=== PATIENT | male | born 1975 | race Caucasian/White ===

== ENCOUNTER 2019-03-14 15:02 | Inpatient (IN) | payer OTHER ==
[~2019-03-14] VITALS: Ht 177.8 cm; Wt 121.2 kg
[2019-03-14 15:29] LABS: ABSOLUTE EOSINOPHILS 0.1 thou/uL (0.0-0.7); ABSOLUTE LYMPHOCYTES 2.8 thou/uL (0.8-5.3); ABSOLUTE MONOCYTES 0.8 thou/uL (0.0-1.2); ABSOLUTE NEUTROPHILS 5.1 thou/uL (1.6-8.1); BASOPHILS 0.3 %; EOSINOPHILS 0.6 %; HEMATOCRIT 39.5 % (42.0-52.0); HEMOGLOBIN 13.1 gm/dL (14.0-18.0); LYMPHOCYTES 31.6 %; MCH 27.2 pg (26.0-34.0); MCHC 33.3 g/dL (28.0-37.0); MCV 81.8 fL (80.0-100.0); MONOCYTES 8.7 %; NUCLEATED RBCS 0 /100WBC; PLATELET COUNT* 308 thou/uL (150-400); POLYS 58.8 %; RBC 4.83 mil/uL (4.50-6.00); RDW-CV 13.8 % (10.5-14.5); WBC 8.7 thou/uL (4.0-11.0)
[2019-03-14 15:38] LABS: ANION GAP 13 mmol/L (7-16); BUN 23 mg/dL (7-18); CHLORIDE 105 mmol/L (98-107); CO2 25 mmol/L (21-32); CREATININE 1.2 mg/dL (0.6-1.3); GLUCOSE 85 mg/dL (70-99); POTASSIUM 3.5 mmol/L (3.5-5.1); SODIUM 143 mmol/L (136-145)
[2019-03-14 15:42] LABS: APTT 27.4 Seconds (25.0-31.3); PROTIME 10.2 Seconds (9.20-11.50)
[2019-03-14 15:49] LABS: ALBUMIN 4.1 g/dL (3.4-5.0); ALKALINE PHOSPHATASE 75 U/L (46-116); LIPASE 141 U/L (73-393); SGOT 23 U/L (15-37); SGPT 48 U/L (30-65); TOTAL BILIRUBIN 0.4 mg/dL (<0.1-1.0); TOTAL PROTEIN 8.1 g/dL (6.4-8.2); TROPONIN-I LEVEL <0.06 ng/mL (<0.06)
[2019-03-14 16:52] LABS: URINE BILIRUBIN NEGATIVE (Negative); URINE BLOOD NEGATIVE (Negative); URINE CLARITY SL CLOUDY; URINE COLOR YELLOW; URINE GLUCOSE-RANDOM NEGATIVE (Negative); URINE KETONES TRACE (Negative); URINE LEUKOCYTES-REFLEX NEGATIVE (Negative); URINE NITRITE-REFLEX NEGATIVE (Negative); URINE PROTEIN NEGATIVE (Negative); URINE SPECIFIC GRAVITY 1.015 (1.005-1.030); URINE UROBILINOGEN 0.2 E.U./dl (0.2-1.0)
[2019-03-14 16:59] LABS: AMP/METHAMP Negative (Negative); BARBITURATES Negative (Negative); BENZODIAZEPINES Negative (Negative); COCAINE Negative (Negative); METHADONE Negative (Negative); OPIATES Negative (Negative); PCP Negative (Negative); THC Negative (Negative)
[2019-03-14 19:24] VITALS: BP 128/80
[2019-03-14 19:40] VITALS: BP 173/95
[2019-03-14 20:10] VITALS: BP 131/73; BP 134/79
[2019-03-15] VITALS (7 sets, daily range): BP systolic 102–150; BP diastolic 64–90
--- NOTE | 2019-03-15 03:03 | NUR ---
RECEIVED PT FROM ER AT APPROX 1930 PER CART ACCOMPANIED BY EUGENIA LOVE. PT IS AWAKE AND ORIENTED X4. VSS ON ROOM AIR. PT IS TRACING SR ON THE MANAGER ARCHITECTURE. PT DENIES PAIN OF THE MOMENT. ADMISSION ASSESSMENTS DONE AND CHARTED. PT ORIENTED ON THE USE OF CALL LIGHT AND ON ROOM SET UP. PT ADVISED ON DIET AND ADVISED TO HAVE NOTHING BY MOUTH POST MIDNIGHT FOR STRESS TEST, PT VERBALISED UNDERSTANDING. HOURLY ROUNDING DONE FOR PT SAFETY. CALL LIGHT WITHIN REACH. WILL CONTINUE TO MONITOR PT.
[2019-03-15 05:09] LABS: CALCIUM 8.1 mg/dL (8.5-10.1); MAGNESIUM 2.1 mg/dL (1.8-2.4); POTASSIUM 3.8 mmol/L (3.5-5.1)
--- NOTE | 2019-03-15 07:20 | NUR ---
CHANGE OF SHIFT, BEDSIDE REPORT GIVEN PATIENT SEEN AT BEDSIDE, IN BED ASLEEP ASSUMED PATIENT CARE
--- NOTE | 2019-03-15 09:51 | NUR ---
Pt is A&O. Active and independent. Resides at home with . No DME. No hx of HH or SNF. Possible dc to home today pending cardiology eval. Following.
[2019-03-15 10:28] LABS: CHOLESTEROL 167 mg/dL (<200); HDL CHOLESTEROL 32 mg/dL (>40); LDL CHOLESTEROL 110 mg/dL (<100); TC:HDL 5.2 Ratio (Not establshd); TRIGLYCERIDE 125 mg/dL (<150); VLDL 25 mg/dL (<40)
[2019-03-15 10:29] LABS: SERUM ASSESSMENT Clear
--- NOTE | 2019-03-15 13:27 | 2DMMODE ---
[place] [address] 2 D/M-MODE ECHOCARDIOGRAM Name: HENRIETTA PEDROZA Room: [address] IN [facility]#: [id number] Admission: 03/14/19 Attend Phys: Jarret Arias, Discharge: Date of : 75 Date of Service: 03/15/19 1327 Report #: [id number] THIS REPORT FOR: //name// APPROVED REPORT Study performed: 03/15/2019 11:21:39 EXAM: Comprehensive 2D, Doppler, and color-flow Echocardiogram Patient Location: In-Patient Room #: [facility] BSA: 2.31 HR: 63 bpm BP: 140/82 mmHg Other Information Study Quality: Good Indications Chest Pain 2D Dimensions IVSd: 11.98 (7-11mm) LVOT Diam: 20.81 (18-24mm) LVDd: 48.02 mm PWd: 10.36 (7-11mm) Ascending Ao: 29.43 (22-36mm) LVDs: 29.87 (25-40mm) Aortic Root: 24.74 mm Volumes Left Atrial Volume (Systole) LA ESV Index: 16.00 mL/m2 Aortic Valve AoV Peak Randy.: 1.49 m/s AO Peak Gr.: 8.89 mmHg LVOT Max P.88 mmHg AO Mean Gr.: 4.77 mmHg LVOT Mean P.30 mmHg LVOT Max V: 1.10 m/s AO V2 VTI: 32.01 cm LVOT Mean V: 0.69 m/s CHLOE (VTI): 2.89 cm2 LVOT V1 VTI: 27.20 cm Mitral Valve E/A Ratio: 1.33 MV Decel. Time: 184.40 ms MV E Max Randy.: 0.78 m/s MV PHT: 53.48 [place] [address] 2 D/M-MODE ECHOCARDIOGRAM Name: HENRIETTA PEDROZA Room: [address] IN [facility]#: [id number] Admission: 03/14/19 Attend Phys: Jarret Arias, Discharge: Date of : 75 Date of Service: 03/15/19 1327 Report #: [id number] MVA (PHT): 4.11 cm2 TDI E/Lateral E': 7.09 E/Medial E': 9.75 Medial E' Randy.: 0.08 m/s Lateral E' Randy.: 0.11 m/s Pulmonary Valve PV Peak Randy.: 1.10 m/s PV Peak Gr.: 4.81 mmHg Tricuspid Valve RAP Estimate: 5.00 mmHg TR Peak Gr.: 19.04 mmHg RVSP: 24.04 mmHg PA Pressure: 24.04 mmHg Left Ventricle The left ventricle is normal size. There is normal LV segmental wall motion. There is normal left ventricular wall thickness. Left ventricular systolic function is normal. The left ventricular ejection fraction is within the normal range. LVEF is 55-60%. The left ventricular diastolic function is normal. Right Ventricle The right ventricle is normal size. The right ventricular systolic function is normal. Atria The left atrium size is normal. The right atrium size is normal. Aortic Valve The aortic valve is normal in structure. No aortic regurgitation is present. There is no aortic valvular stenosis. Mitral Valve The mitral valve is normal in structure. Mild mitral regurgitation. No evidence of mitral valve stenosis. Tricuspid Valve The tricuspid valve is normal in structure. Mild tricuspid regurgitation. Pulmonic Valve The pulmonary valve is normal in structure. There is no pulmonic [place] [address] 2 D/M-MODE ECHOCARDIOGRAM Name: HENRIETTA PEDROZA Room: [address]#: [id number] Admission: 03/14/19 Attend Phys: Jarret Arias, Discharge: Date of : 75 Date of Service: 03/15/19 1327 Report #: [id number] Great Vessels The aortic root is normal in size. IVC is normal in size and collapses >50% with inspiration. Pericardium There is no pericardial effusion. <Conclusion> The left ventricle is normal size. There is normal left ventricular wall thickness. Left ventricular systolic function is normal. The left ventricular ejection fraction is within the normal range. LVEF is 55-60%. The left ventricular diastolic function is normal. The right ventricle is normal size. The left atrium size is normal. The aortic valve is normal in structure. The mitral valve is normal in structure. Mild mitral regurgitation. The tricuspid valve is normal in structure. Mild tricuspid regurgitation. IVC is normal in size and collapses >50% with inspiration. There is no pericardial effusion. There is normal LV segmental wall motion. <ELECTRONICALLY SIGNED> By: Akil Reynoso MD, FACC 03/15/19 1327 132 132 Akil Reynoso MD, FACC /INF
--- NOTE | 2019-03-15 17:00 | NUR ---
PATIENT DISCHARGED OK WITH CARDIOLOGY AFTER 1ST PART OF STRESS TEST DIRECTED TO RETURN TOMORROW FOR 2ND PART OF STRESS TEST IV AND HEART MONITOR REMOVED PERSONAL BELONGINGS RETURNED ASSISTED OUT VIA WC IN GOOD CONDITION TO WAITING CAR
--- NOTE | 2019-03-15 17:01 | EKG ---
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1975 Requested By: Joselyn Merritt Order Number: [id number] MD: Michael Jaramillo Measurements Intervals [place] Rate: 105 P: 38 MN: 159 QRS: 47 QRSD: 92 T: 20 QT: 361 QTc: 478 Interpretive Statements Sinus tachycardia Abnormal R-wave progression, late transition Borderline T abnormalities, anterior leads Borderline prolonged QT interval No previous ECG available for comparison Electronically Signed On 03-15-2019 17:01:32 CDT by Michael Jaramillo [email or web address] <ELECTRONICALLY SIGNED> By: Michael Jaramillo MD, [facility] 03/15/19 1701 [id number] [id number] Michael Jaramillo MD, [facility] /EPI
--- NOTE | 2019-03-16 18:15 | CARDNUC ---
[place] [address] CARDIAC NUCLEAR IMAGING REPORT Name: KASIAHENRIETTA AMRITA Room: [address] IN [facility]#: [id number] Admission: 03/14/19 Attend Phys: Jarret Arias, Discharge: 03/15/19 Date of : 75 Date of Service: 03/16/19 1815 Report #: [id number] THIS REPORT FOR: //name// APPROVED REPORT Study performed: 03/16/2019 14:15:41 Indication: Chest pain, Syncope, Dyspnea Patient Location: In-Patient Stress Tech: Priscila Cuevas Stress Nurse: Lorrie Stevens RN Ht: 5 ft 10 in Wt: 260 lbs BSA: 2.33 m2 BMI: 37.30 Medical History Medical History: Angina, Former Smoker, HTN, No history of CAD, Obesity , SOB, Syncope. Medications: None Allergies: No known drug allergies Cardiac Risk Factors: HTN, SOB, Past Smoker. Previous Cardiac Procedures: None Pretest Chest Pain Characteristics: No chest pain Exercise History: Physically active Physical Disabilities: Ankle surgery/pins-plates. Meds Held (24 hrs): None Resting Data Rest SPECT myocardial perfusion imaging was performed in supine position 30 minutes following the intravenous injection of 28.0 mCi of Tc-99m Sestamibi. Time of rest injection: 15:15 Date: 03/15/2019 The images were gated to evaluate regional wall motion and calculate left ventricular ejection fraction. Administration Route: IV Administration Site: Other Exercise Stress At peak stress, the patient was injected intravenously with 39.6mCi of Tc-99m Sestamibi. Time of stress injection: 14:15 Date: 03/16/2019 Administration Route: IV Administration Site: Right Arm Heart Rate at time of stress injection: 158 bpm. Gated Stress SPECT was performed 30 [place] [address] CARDIAC NUCLEAR IMAGING REPORT Name: HENRIETTA PEDROZA Room: [address]#: [id number] Admission: 03/14/19 Attend Phys: Jarret Arias, Discharge: 03/15/19 Date of : 75 Date of Service: 03/16/19 1815 Report #: [id number] injection. The images were gated to evaluate regional wall motion and calculate left ventricular ejection fraction. Prone imaging was performed. Stress Test Details Stress Test: Exercise stress testing was performed using a modified Phillip protocol. HR Max Heart Rate (APMHR): 176 bpm Resting HR: 74 bpm Target HR (85% APMHR): 149 bpm Max HR Achieved: 158 bpm % of APMHR: 89 Recovery HR: 103 bpm BP Resting BP: 127/84 mmHg Max BP: 208/53 mmHg Recovery BP: 145/82 mmHg ECG Resting ECG: Sinus Rhythm Stress ECG: Sinus Tachycardia ST Change: None Arrhythmia: None Recovery ECG: Sinus Rhythm Recovery ST Change: None Recovery Arrhythmia: None Clinical Reason for Termination: Completed protocol, Target HR achieved, Patient Request Stress Symptoms: Dyspnea, Leg Fatigue Exercise duration: 8 min 56 sec Exercise capacity: 10.16 METs Overall Exercise Capacity for Age: Normal The patient had no significant cardiac symptoms with standard Phillip protocol exercise. Nurse Comments 44 year old male presented after being discharged from [facility] for Phillip Protocol Nuclear Stress Test r/t recent HX of CP, SOA and syncope. Patient tolerated Phillip Protocol well, exercise capacity - Normal. Recovery unremarkable. Patient was escorted by staff to Nuclear Medicine for images. Patient was stable with no [place] [address] CARDIAC NUCLEAR IMAGING REPORT Name: KASIAHENRIETTA Room: [address]#: [id number] Admission: 03/14/19 Attend Phys: Jarret Arias, Discharge: 03/15/19 Date of : 75 Date of Service: 03/16/19 1815 Report #: [id number] Stress ECG Conclusion Baseline 12-lead EKG show sinus rhythm without significant ST or T wave abnormality. EKGs obtained during and post exercise showed sinus rhythm and sinus tachycardia with no significant ST or T wave changes when compared to baseline. There were no stress-induced arrhythmias. Study Quality Study: Good Artifact: No artifact Study Data At rest, the left ventricular ejection fraction was 66%.. Post stress, the left ventricular ejection was 75%.. TID = 0.85. Perfusion Normal left ventricular perfusion. Wall Motion Normal left ventricular wall motion. Nuclear Conclusion ECG Findings: negative for ischemia Clinical Findings: negative for ischemia Nuclear Findings: negative for ischemia Exercise Capacity: normal Left Ventricular Function: normal Risk Study: low Myocardial perfusion images show no defect to suggest infarct or ischemia. Left ventricular systolic function appears normal on gated studies. This is a low risk study. <Conclusion> Baseline 12-lead EKG show sinus rhythm without significant ST or T wave abnormality. EKGs obtained during and post exercise showed sinus rhythm and sinus tachycardia with no significant ST or T wave changes when compared to baseline. There were no stress-induced arrhythmias. <ELECTRONICALLY SIGNED> By: Michael Jaramillo MD, FACC 03/16/191814 14 14 Michael Jaramillo MD, FACC /INF
== END 2019-03-15 16:43 | disposition home or self-care (01) | DRG 312 ==
LOC: M.ERS 15:02 → M.TBA-ER 18:08 → M.2W 18:08
PROVIDERS: Physician Assistant; Registered Nurse; ADMIT Internal Medicine
DX: R55 Syncope and collapse (principal); I45.81 Long QT syndrome; R07.89 Other chest pain